=== PATIENT | male | born 1980 | race Two or more races ===

== ENCOUNTER 2023-12-22 05:21 | Inpatient (IN) | payer MEDICAID, OTHER ==
[~2023-12-22] VITALS: Ht 177.8 cm; Wt 131.9 kg
[2023-12-22] MEDS: chlordiazePOXIDE HCL 25 MG CAP PO ONE (06:13)
[2023-12-22 06:32] LABS: Basophils # (auto) 0.1 10 ^3/uL (0-0.2); Eosinophils # (auto) 0.2 10 ^3/uL (0-0.8)
[2023-12-22 06:34] LABS: Basophils % (auto) 1.3 % (0.0-2.0); Eosinophils % (auto) 2.2 % (0.0-7.0); Hematocrit 38.3 % (41.0-53.0); Hemoglobin 13.9 g/dL (13.5-17.5); Mean Corpuscular Hemoglobin 38.3 pg (28.0-32.0); Mean Corpuscular Hgb Conc. 36.2 g/dL (32.0-36.0); Mean Corpuscular Volume 105.7 fL (80.0-100.0); Monocytes % (auto) 11.9 % (0.0-12.0); Neutrophils # (auto) 5.9 10 ^3/uL (1.6-8.6); Neutrophils % (auto) 72.6 % (37.0-80.0); Red Blood Cells 3.63 10^6/uL (4.5-5.90); Red Cell Distribution Width 15.6 % (11.8-14.3); White Blood Cell 8.1 10^3/uL (4.4-10.8)
[2023-12-22 06:56] VITALS: O2SAT 96
[2023-12-22 07:05] LABS: Albumin 3.7 g/dL (3.2-4.8); Alkaline Phosphatase 132 U/L (46-116); Anion Gap 8 (5-15); Calcium 9.4 mg/dL (8.7-10.4); Carbon Dioxide 23 mmol/L (20-30); Chloride 104 mmol/L (98-107); Glucose 109 mg/dL (74-106); Potassium 3.3 mmol/L (3.5-5.1); Sodium 135 mmol/L (136-145)
[2023-12-22 07:06] LABS: Bilirubin, Total 21.8 mg/dL (0.2-1.0)
[2023-12-22 07:08] LABS: Alanine Aminotransferase 45 U/L (7-40); Aspartate Aminotransferase 138 U/L (13-40); BUN/Creatinine Ratio 20.7 (10.0-20.0); Blood Urea Nitrogen 12 mg/dL (9-23); Lipase 43 U/L (12-53); Total Protein 8.1 g/dL (5.7-8.2)
[2023-12-22 07:21] LABS: Blood Alcohol < 3.0 mg/dL (<10)
[2023-12-22] MEDS: SODIUM CHLORIDE 0.9% 1,000 ML IV ONE ×2 (07:52→10:16)
[2023-12-22] MEDS: POTASSIUM EFFERVESENT TAB 25 MEQ PO ONE (07:52)
[2023-12-22] MEDS: THIAMINE 100mg/ml INJ (200mg/2ml VIAL) IV ONE (07:53)
[2023-12-22] MEDS: LORazepam 2MG/ML-1ML VIAL IV ONE (07:53)
[2023-12-22 08:00] VITALS: RESP 20; O2SAT 96
[2023-12-22] MEDS: MIDAZOLAM HCL 5 MG/ML-1ML VIAL ONE (09:19)
[2023-12-22] MEDS: MIDAZOLAM HCL 5 MG/ML-1ML VIAL IV ONE (09:22)
[2023-12-22] MEDS ORDERED: NITROGLYCERIN 0.4 MG SL TAB SL PRN (12:00)
[2023-12-22] MEDS ORDERED: MORPHINE SULFATE INJ 2 MG/ml SYRG IV PRN (12:00)
[2023-12-22] MEDS: chlordiazePOXIDE HCL 25 MG CAP PO SCH (14:47)
[2023-12-22] MEDS: LORazepam 2MG/ML-1ML VIAL IV SCH (14:48)
[2023-12-22] MEDS: FOLIC ACID 1 MG, MAGNESIUM SULF SDV 50% 8 MEQ, MULTIPLE VITAMIN 10 ML, THIAMINE INJ 100... INJ SCH (18:43)
[2023-12-22] MEDS: QUEtiapine FUMARATE 25 MG TAB PO SCH (20:45)
[2023-12-22] MEDS: LACTULOSE 20Gm/30ML SOLN PO SCH (20:46)
[2023-12-22 21:20] VITALS: PULSE 87; RESP 18; O2SAT 95
[2023-12-23] VITALS: BP 142/82; PULSE 81; RESP 23; TEMP 98.3; O2SAT 96
[2023-12-23 05:06] LABS: Basophils # (auto) 0 10 ^3/uL (0-0.2); Basophils % (auto) 0.7 % (0.0-2.0); Eosinophils # (auto) 0.2 10 ^3/uL (0-0.8); Hematocrit 34.7 % (41.0-53.0); Hemoglobin 12.1 g/dL (13.5-17.5); Lymphocytes # (auto) 1.1 10 ^3/uL (0.4-5.4); Lymphocytes % (auto) 18.6 % (10.0-50.0); Mean Corpuscular Hemoglobin 37.4 pg (28.0-32.0); Mean Corpuscular Hgb Conc. 34.8 g/dL (32.0-36.0); Mean Corpuscular Volume 107.5 fL (80.0-100.0); Monocytes # (auto) 0.9 10 ^3/uL (0-1.3); Monocytes % (auto) 14.6 % (0.0-12.0); Neutrophils # (auto) 3.8 10 ^3/uL (1.6-8.6); Neutrophils % (auto) 63.1 % (37.0-80.0); Nucleated Red Blood Cells % 0.1 %; Red Blood Cells 3.23 10^6/uL (4.5-5.90); Red Cell Distribution Width 16.1 % (11.8-14.3)
[2023-12-23 05:15] LABS: Albumin 3.1 g/dL (3.2-4.8); Alkaline Phosphatase 115 U/L (46-116); Anion Gap 7 (5-15); Calcium 8.6 mg/dL (8.7-10.4); Carbon Dioxide 23 mmol/L (20-30); Chloride 110 mmol/L (98-107); Glucose 97 mg/dL (74-106); Potassium 3.4 mmol/L (3.5-5.1); Sodium 140 mmol/L (136-145)
[2023-12-23 05:17] LABS: Alanine Aminotransferase 38 U/L (7-40); Aspartate Aminotransferase 114 U/L (13-40); BUN/Creatinine Ratio 14.1 (10.0-20.0); Blood Urea Nitrogen 9 mg/dL (9-23); Total Protein 6.7 g/dL (5.7-8.2)
[2023-12-23 07:35] VITALS: PULSE 84; RESP 20; O2SAT 96
[2023-12-23 14:47] LABS: INR 1.43 (0.9-1.15); Prothrombin Time 14.8 sec (9.3-11.8)
[2023-12-23] MEDS: methylPREDNISolone SOD SUCC 125 MG/2 ML VL IM ONE (15:12)
[2023-12-23 15:34] LABS: Hepatitis B Core Total AB Negative (Negative)
[2023-12-23 16:10] LABS: Hepatitis B Surface Antibody Negative (Negative); Hepatitis B Surface Antigen Negative (Negative); Hepatitis C Antibody Negative (Negative)
[2023-12-24] VITALS (8 sets, daily range): BP systolic 132–156; BP diastolic 56–81; PULSE 70–85; RESP 9–20; TEMP 97–98.4; O2SAT 96–98
[2023-12-24] MEDS: PANTOPRAZOLE 40 MG/10 ML VIAL INJ IV SCH (10:08)
[2023-12-24 10:44] LABS: Basophils # (auto) 0 10 ^3/uL (0-0.2); Basophils % (auto) 0.3 % (0.0-2.0); Eosinophils # (auto) 0 10 ^3/uL (0-0.8); Hemoglobin 12.9 g/dL (13.5-17.5); Lymphocytes # (auto) 0.4 10 ^3/uL (0.4-5.4); Monocytes # (auto) 0.5 10 ^3/uL (0-1.3); Monocytes % (auto) 9.5 % (0.0-12.0); Neutrophils # (auto) 4.5 10 ^3/uL (1.6-8.6); Nucleated Red Blood Cells % 0.1 %; Red Cell Distribution Width 16.7 % (11.8-14.3)
[2023-12-24 10:47] LABS: Eosinophils % (auto) 0.1 % (0.0-7.0); Hematocrit 37.3 % (41.0-53.0); Lymphocytes % (auto) 6.8 % (10.0-50.0); Mean Corpuscular Hemoglobin 37.1 pg (28.0-32.0); Mean Corpuscular Hgb Conc. 34.5 g/dL (32.0-36.0); Mean Corpuscular Volume 107.3 fL (80.0-100.0); Neutrophils % (auto) 83.3 % (37.0-80.0); Red Blood Cells 3.48 10^6/uL (4.5-5.90); White Blood Cell 5.4 10^3/uL (4.4-10.8)
[2023-12-24 11:02] LABS: Albumin 3.4 g/dL (3.2-4.8); Alkaline Phosphatase 123 U/L (46-116); Anion Gap 9 (5-15); Carbon Dioxide 21 mmol/L (20-30); Chloride 108 mmol/L (98-107); Glucose 147 mg/dL (74-106); Potassium 3.4 mmol/L (3.5-5.1); Sodium 138 mmol/L (136-145)
[2023-12-24 11:03] LABS: Bilirubin, Total 24.9 mg/dL (0.2-1.0)
[2023-12-24 11:45] LABS: Alanine Aminotransferase 46 U/L (7-40); Aspartate Aminotransferase 116 U/L (13-40); BUN/Creatinine Ratio 15.2 (10.0-20.0); Blood Urea Nitrogen 10 mg/dL (9-23); Total Protein 7.6 g/dL (5.7-8.2)
[2023-12-24] MEDS: predniSONE 20 MG TAB PO ONE (14:01)
[2023-12-25] VITALS (8 sets, daily range): BP systolic 140–161; BP diastolic 74–85; PULSE 72–85; RESP 19–20; TEMP 97.9–98.7; O2SAT 97–98
[2023-12-25 09:07] LABS: Albumin 3.5 g/dL (3.2-4.8)
[2023-12-25 09:14] LABS: Alanine Aminotransferase 50 U/L (7-40); Alkaline Phosphatase 131 U/L (46-116); Anion Gap 9 (5-15); Aspartate Aminotransferase 107 U/L (13-40); Blood Urea Nitrogen 10 mg/dL (9-23); Calcium 8.8 mg/dL (8.7-10.4); Carbon Dioxide 22 mmol/L (20-30); Chloride 108 mmol/L (98-107); Glucose 121 mg/dL (74-106); Potassium 4.2 mmol/L (3.5-5.1); Sodium 139 mmol/L (136-145); Total Protein 7.2 g/dL (5.7-8.2)
[2023-12-25] MEDS: predniSONE 20 MG TAB PO SCH (10:18)
[2023-12-25 10:54] LABS: Bilirubin, Total 21.6 mg/dL (0.2-1.0)
[2023-12-26] VITALS (7 sets, daily range): BP systolic 138–161; BP diastolic 75–108; PULSE 71–85; RESP 16–20; TEMP 97.9–98.8; O2SAT 18–99
[2023-12-26 07:07] LABS: CMV IgG Antibody <0.60 U/mL (0.00-0.59); CMV IgM Antibody <30.0 AU/mL (0.0-29.9)
[2023-12-26 10:30] LABS: Hepatitis A Total Antibody Positive (Negative)
[2023-12-26] MEDS: FUROSEMIDE 20 MG TAB PO SCH (11:02)
[2023-12-26] MEDS: SPIRONOLACTONE 25 MG TAB PO SCH (11:02)
[2023-12-26] MEDS: URSODIOL 300 MG CAP PO SCH (11:53)
[2023-12-26] MEDS ORDERED: LORazepam 2MG/ML-1ML VIAL IV PRN (16:00)
[2023-12-27 01:00] VITALS: BP 156/89; PULSE 78; RESP 16; TEMP 97.8; O2SAT 99
[2023-12-27 05:00] VITALS: BP 149/79; PULSE 79; RESP 16; TEMP 97.5; O2SAT 97
[2023-12-27 08:00] VITALS: PULSE 73; PULSE 77; RESP 19; O2SAT 98
[2023-12-27 08:28] VITALS: BP 146/87; PULSE 77; RESP 19; TEMP 98; O2SAT 98
[2023-12-27 10:33] LABS: Alanine Aminotransferase 64 U/L (7-40); Albumin 3.3 g/dL (3.2-4.8); Alkaline Phosphatase 118 U/L (46-116); Anion Gap 7 (5-15); Aspartate Aminotransferase 103 U/L (13-40); Bilirubin, Total 18.8 mg/dL (0.2-1.0); Blood Urea Nitrogen 10 mg/dL (9-23); Calcium 8.5 mg/dL (8.7-10.4); Carbon Dioxide 24 mmol/L (20-30); Chloride 109 mmol/L (98-107); Glucose 86 mg/dL (74-106); Potassium 3.9 mmol/L (3.5-5.1); Sodium 140 mmol/L (136-145); Total Protein 6.9 g/dL (5.7-8.2)
[2023-12-27 10:40] LABS: BUN/Creatinine Ratio 18.2 (10.0-20.0)
[2023-12-27 12:17] VITALS: BP 144/79; PULSE 81; RESP 20; TEMP 97.9; O2SAT 100
[2023-12-27] MEDS ORDERED: METH4PAK PO (15:25)
[2023-12-27] MEDS ORDERED: FUR20T PO (15:25)
[2023-12-27] MEDS ORDERED: CHLO10CA70 PO (15:25)
[2023-12-27] MEDS ORDERED: URSO300C2 PO (15:25)
[2023-12-27] MEDS ORDERED: QUET1TAB11 PO (15:25)
[2023-12-27] MEDS ORDERED: SPIR25TA PO (15:25)
[2023-12-27 15:50] VITALS: BP 144/79; PULSE 81; RESP 20; TEMP 97.9; O2SAT 100
[2023-12-28 10:07] LABS: CMV IgG Antibody <0.60 U/mL (0.00-0.59); CMV IgM Antibody <30.0 AU/mL (0.0-29.9)
== END 2023-12-27 17:35 | disposition home or self-care (01) | DRG 280 ==
LOC: ER 05:21 → TELE 11:56 → TELE-CENTR 12-23 21:46
PROVIDERS: ADMIT Internal Medicine; ATTEND Internal Medicine
DX: K70.10 Alcoholic hepatitis without ascites (principal); K70.30 Alcoholic cirrhosis of liver without ascites; D68.9 Coagulation defect, unspecified; D69.6 Thrombocytopenia, unspecified; K83.1 Obstruction of bile duct; R45.851 Suicidal ideations; K70.9 Alcoholic liver disease, unspecified; F41.9 Anxiety disorder, unspecified; K76.0 Fatty (change of) liver, not elsewhere classified; E87.6 Hypokalemia; F32.A Depression, unspecified; F10.239 Alcohol dependence with withdrawal, unspecified; E66.9 Obesity, unspecified; D53.9 Nutritional anemia, unspecified; D69.59 Other secondary thrombocytopenia; Y90.9 Presence of alcohol in blood, level not specified; Z68.41 Body mass index [BMI] 40.0-44.9, adult; Z56.0 Unemployment, unspecified; D72.819 Decreased white blood cell count, unspecified
CPT/HCPCS: 36415; 74176; 76705; 80053; 80320; 82140; 82728; 83690; 85025; 85610; 86644; 86645; 86704; 86706; 86708; 86803; 87340; 97110; 97116; 97163; 97530; G0378; J2250; J2470